=== PATIENT | male | born 1955 | race Caucasian/White ===

== ENCOUNTER 2020-10-07 19:44 | Emergency (ER) | payer BC, OTHER ==
[~2020-10-07] VITALS: Ht 180.3 cm; Wt 70.3 kg
--- NOTE | 2020-10-07 20:05 | ED Hip Pain/Injury ---
General Chief Complaint: Hip/Pelvic Problems Stated Complaint: FELL,GROIN PAIN Source: patient History of Present Illness Date Seen by Provider: Oct 07, 2020 Time Seen by Provider: 19:46 Initial Comments 65 yo male presents with right hip/groin pain since fall [place]. He had tripped over his shoelaces and fell onto his right hip. He denies hitting his head or losing consciousness. He has no numbness or tingling. He is able to bear some weight on right leg but not enough to walk, only hop or hobble. He has pain 8/10 with standing but with laying on the bed he has no pain. He has not taken anything for pain. Allergies and Home Medications Allergies Coded Allergies: No Known Drug Allergies (Unverified , 10/07/20) Home Medications Hydrocodone/Acetaminophen 1 Each Tablet, 1 EACH PO Q6H PRN for PAIN-SEVERE (8- 10) Prescribed by: CHE ALFARO on 10/07/202149 Ibuprofen 800 Mg Tablet, 800 MG PO Q8H PRN for PAIN Prescribed by: CHE ALFARO on 10/07/202148 Patient Home Medication List Home Medication List Reviewed: Yes Review of Systems Constitutional: No chills, No fever EENTM: no symptoms reported Respiratory: no symptoms reported Cardiovascular: no symptoms reported Gastrointestinal: no symptoms reported Genitourinary: no symptoms reported Musculoskeletal: see HPI Skin: No change in color Psychiatric/Neurological: See HPI Past Jbnwoze-Rhjhct-Cdstkg Hx Past Med/Social Hx: Reviewed Nursing Past Med/Soc Hx Patient Social History Alcohol Use: Denies Use Smoking Status: Never a Smoker Recent Foreign Travel: No Contact w/Someone Who Travel: No Past Medical History Surgeries: Yes Respiratory: No Cardiac: No Neurological: No Genitourinary: No Gastrointestinal: No Musculoskeletal: No Endocrine: No HEENT: No Cancer: No Psychosocial: No Integumentary: No Physical Exam Vital Signs Vital Signs - First Documented 10/07/20 19:47 Temp 36.6 Pulse 74 Resp 16 B/P (MAP) 145/87 (106) Pulse Ox 97 O2 Delivery Room Air Capillary Refill : Height, Weight, BMI Height: '" Weight: lbs. oz. kg; BMI Method: General Appearance: No Apparent Distress, WD/WN HEENT: PERRL/EOMI Cardiovascular: Regular Rate, Rhythm, Normal Peripheral Pulses Extremity: Normal Capillary Refill, No Calf Tenderness, No Pedal Edema, Pelvis Stable, Other (tender to internal and external rotation of the right hip of internal groin) Neurologic/Psychiatric: Alert, Oriented x3, No Motor/Sensory Deficits Skin: Normal Color, Warm/Dry Progress/Results/Core Measures Results/Orders My Orders Orders - CHE ALFARO MD Pelvis With Right Hip 2-3 View (10/07/20 19:59) Ct Pelvis Wo (10/07/20 20:30) Rx-Hydrocodone/Apap 5-325 Mg (Rx-Vicodin (10/07/20 21:45) Medications Given in ED Current Medications Medications Dose Ordered Sig/Jose D Route Start Time Stop Time Status Last Admin Dose Admin Acetaminophen/ Hydrocodone Bitart 1 ea Q6H PRN PO 10/07/20 21:45 10/07/20 21:54 DC 10/07/20 21:47 1 EA Vital Signs/I&O 10/07/20 10/07/20 19:47 21:53 Temp 36.6 36.6 Pulse 74 76 Resp 16 18 B/P (MAP) 145/87 (106) 126/82 (106) Pulse Ox 97 99 O2 Delivery Room Air Room Air Progress Progress Note #1: Progress Note obtain xrays of pelvis and right hip. with no pain laying in bed pt refused pain medicine before imaging. Progress Note #2: Time: 20:24 Progress Note no acute definite fracture seen on plain films. add on CT to look in finer detail since still having severe pain with standing. Progress Note #3: Progress Note CT shows hairline fracture from superior pubic ramus extending into the acetabulum on right. Will treat with pain control, weight bearing as tolerated, follow up with clinic/orthopedics. Walker from here to assist with ambulation. Diagnostic Imaging Diagonstic Imaging: Xray Plain Films/CT/US/NM/MRI: pelvis, hip Comments [facility]. [place], [place] NAME: JONATHAN ALVARADO [facility] REC#: [id number] PT STATUS: REG ER : 1955 PHYSICIAN: CHE ALFARO MD ADMIT DATE: 10/07/20/ER FS Draft Date of Exam:10/07/20 PELVIS WITH RIGHT HIP 2-3 VIEW INDICATION: Fall. Right hip and groin pain. COMPARISON: None FINDINGS: Frontal radiographic view of the pelvis and two dedicated radiographic views of the right hip were obtained. There is lucency within the proximal right femur consistent with probable previous intramedullary christiano placement and subsequent removal. There is partially visualized chronic appearing deformity of the right femoral shaft likely on the basis of old healed fracture. No acute fracture of the right hip is seen. Femoral acetabular joint space is maintained. Osseous pelvis is intact. There is large amount of colonic air and stool. No unexpected radiopaque foreign bodies are seen. IMPRESSION: 1. No acute fracture or dislocation of the pelvis or right hip. 2. Probable prior fracture with previous surgery to the right femur as described above. 3. Large amount of colonic air and stool. Please correlate for constipation. Dictated on workstation # [id number] Dict: 10/07/202025 Trans: 10/07/202028 [facility] [id number] Interpreted by: KARMEN LU MD Electronically signed by: Diagonstic Imaging: CT Plain Films/CT/US/NM/MRI: pelvis Comments NAME: JONATHAN ALVARADO [facility] REC#: [id number] PT STATUS: REG ER : 1955 PHYSICIAN: CHE ALFARO MD ADMIT DATE: 10/07/20/ER FS Draft Date of Exam:10/07/20 CT PELVIS WO PROCEDURE: CT pelvis without contrast. TECHNIQUE: Multiple contiguous axial images were obtained through the pelvis without the use of intravenous contrast. Sagittal and coronal reformations were performed. Auto Exposure Controls were utilized during the CT exam to meet ALARA standards for radiation dose reduction. INDICATION: Fall. Right hip pain. Previous right femoral fracture. COMPARISON: Radiographs from earlier the same day. FINDINGS: There is very subtle irregular jagged lucency involving the lateral margins of the superior pubic ramus near its junction with the acetabulum. This is only well visualized on the sagittal reformats (image 143, series 302). Findings could be on the basis of acute nondisplaced hairline fracture. No other distinct acute fracture or dislocation of the pelvis or either hip is identified. Pubic symphysis is within normal limits. SI joints are symmetric. Bilateral femoroacetabular joint spaces are maintained as well. Prior postsurgical changes of the proximal right femur are again noted. There is no acute fracture of the included portions of the bilateral femurs. No unexpected radiopaque foreign body is seen. Note is made of moderate asymmetric osteoarthritic changes to the left hip. There is also collapse of the anterior superior femoral head cortex with increased subchondral sclerosis. The surrounding soft tissue structures are unremarkable. No focal fluid collection is seen. IMPRESSION: 1. Very subtle findings suggestive of hairline fracture of the right puboacetabular junction, as described above. This could be confirmed with MR imaging. 2. Redemonstration of postsurgical changes of the proximal right femur. No unexpected radiopaque foreign bodies. 3. 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 Correlation with MRI may be of benefit and could be performed on a nonemergent basis. Dictated on workstation # [id number] Dict: 10/07/202104 Trans: 10/07/202114 [facility] [id number] Interpreted by: KARMEN LU MD Electronically signed by: Departure Impression Primary Impression: Closed fracture of right superior pubic ramus Qualified Codes: S32.511A - Fracture of superior rim of right pubis, initial encounter for closed fracture Additional Impressions: Fall Qualified Codes: W19.XXXA - Unspecified fall, initial encounter Contusion of right hip, initial encounter Disposition: 01 HOME, SELF-CARE Condition: Stable Departure-Patient Inst. Decision time for Depature: 21:50 Referrals: MAINOR RUFF MD Patient Instructions: How to Use a Walker, Pelvic Fracture (DC) Add. Discharge Instructions: Use the walker for weight bearing as you tolerate it. Ibuprofen or Hydrocodone for pain. Check with clinic next week about your hairline fracture of the pubic ramus extending into your right acetabulum (cup of your hip joint) You could follow up with Orthopedics Dr. Ruff or his human resource assistant TATYANA Buitrago here in [place] by calling [phone] All discharge instructions reviewed with patient and/or family. Voiced understanding. Scripts Ibuprofen (Ibuprofen) 800 Mg Tablet 800 MG PO Q8H PRN for PAIN for 10 Days, #30 TAB 0 Refills Prov: CHE ALFARO MD 10/07/20 Hydrocodone/Acetaminophen (Hydrocodone-Acetamin 5-325 mg) 1 Each Tablet 1 EACH PO Q6H PRN for PAIN-SEVERE (8-10) for 5 Days, #20 TAB 0 Refills Prov: CHE ALFARO MD 10/07/20 CHE ALFARO MD Oct 07, 2020 20:05
--- NOTE | 2020-10-07 20:30 | Diagnostic Imaging Report ---
INDICATION: Fall. Right hip and groin pain. COMPARISON: None FINDINGS: Frontal radiographic view of the pelvis and two dedicated radiographic views of the right hip were obtained. There is lucency within the proximal right femur consistent with probable previous intramedullary christiano placement and subsequent removal. There is partially visualized chronic appearing deformity of the right femoral shaft likely on the basis of old healed fracture. No acute fracture of the right hip is seen. Femoral acetabular joint space is maintained. Osseous pelvis is intact. There is large amount of colonic air and stool. No unexpected radiopaque foreign bodies are seen. IMPRESSION: 1. No acute fracture or dislocation of the pelvis or right hip. 2. Probable prior fracture with previous surgery to the right femur as described above. 3. Large amount of colonic air and stool. Please correlate for constipation. Dictated by: Dictated on workstation # [id number]
--- NOTE | 2020-10-07 21:16 | Diagnostic Imaging Report ---
PROCEDURE: CT pelvis without contrast. TECHNIQUE: Multiple contiguous axial images were obtained through the pelvis without the use of intravenous contrast. Sagittal and coronal reformations were performed. Auto Exposure Controls were utilized during the CT exam to meet ALARA standards for radiation dose reduction. INDICATION: Fall. Right hip pain. Previous right femoral fracture. COMPARISON: Radiographs from earlier the same day. FINDINGS: There is very subtle irregular jagged lucency involving the lateral margins of the superior pubic ramus near its junction with the acetabulum. This is only well visualized on the sagittal reformats (image 143, series 302). Findings could be on the basis of acute nondisplaced hairline fracture. No other distinct acute fracture or dislocation of the pelvis or either hip is identified. Pubic symphysis is within normal limits. SI joints are symmetric. Bilateral femoroacetabular joint spaces are maintained as well. Prior postsurgical changes of the proximal right femur are again noted. There is no acute fracture of the included portions of the bilateral femurs. No unexpected radiopaque foreign body is seen. Note is made of moderate asymmetric osteoarthritic changes to the left hip. There is also collapse of the anterior superior femoral head cortex with increased subchondral sclerosis. The surrounding soft tissue structures are unremarkable. No focal fluid collection is seen. IMPRESSION: 1. Very subtle findings suggestive of hairline fracture of the right puboacetabular junction, as described above. This could be confirmed with MR imaging. 2. Redemonstration of postsurgical changes of the proximal right femur. No unexpected radiopaque foreign bodies. 3. 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 Correlation with MRI may be of benefit and could be performed on a nonemergent basis. Dictated by: Dictated on workstation # [id number]
[2020-10-07] MEDS ORDERED: RX-HYDROCODONE/APAP 5/325 MG #4 TAB PK PO PRN (21:45)
[2020-10-07] MEDS ORDERED: IBUP-1780 PO (21:49)
[2020-10-07] MEDS ORDERED: ACHD5005 PO (21:49)
[2020-10-07 21:53] VITALS: BP 126/82
== END 2020-10-07 21:53 | disposition home or self-care (01) ==
LOC: ER FS 19:45
DX: S32.511A Fracture of superior rim of right pubis, initial encounter for closed fracture (principal); S70.01XA Contusion of right hip, initial encounter; W01.0XXA Fall on same level from slipping, tripping and stumbling without subsequent striking against object, initial encounter
CPT/HCPCS: 72192; 73502

== ENCOUNTER → 2020-11-09 | Outpatient (CLI) | payer BC ==
[~2020-11-09] MED LIST: ACHD5005 PO; IBUP-1780 PO
--- NOTE | 2020-11-09 16:05 | Diagnostic Imaging Report ---
INDICATION: Follow-up pelvic fracture. COMPARISON: CT dated 10/07/2020. FINDINGS: A single AP view of the pelvis was performed. No acute fracture or dislocation is apparent on this exam. Pubic symphysis is within normal limits. SI joints are symmetric. Proximal femurs are intact, bilaterally. The femoro-acetabular joint spaces appear maintained on this single frontal view. No unexpected radiopaque foreign bodies are seen. Included small bowel loops are nondistended. IMPRESSION: 1. No acute fracture or dislocation of the pelvis or bilateral hips is evident on today's exam. Dictated by: Dictated on workstation # [id number]
== END ==
LOC: RAD FS 13:33
PROVIDERS: ATTEND Nurse Practitioner
DX: S32.491D Other specified fracture of right acetabulum, subsequent encounter for fracture with routine healing (principal)
CPT/HCPCS: 72170

== ENCOUNTER 2022-06-28 09:51 | Emergency (ER) | payer BC ==
[~2022-06-28] VITALS: Ht 180 cm; Wt 70.0 kg
[2022-06-28 10:38] LABS: BASOPHILS % (AUTO) 0 % (0-10); EOSINOPHILS # (AUTO) 0.2 10^3/uL (0.0-0.3); EOSINOPHILS % (AUTO) 3 % (0-10); HEMATOCRIT 44 % (40-54); HEMOGLOBIN 15.2 g/dL (13.3-17.7); LYMPHOCYTES # (AUTO) 1.3 10^3/uL (1.0-4.0); LYMPHOCYTES % (AUTO) 21 % (12-44); MEAN CORPUSCULAR HEMOGLOBIN 34 pg (25-34); MEAN CORPUSCULAR HGB CONC 34 g/dL (32-36); MEAN CORPUSCULAR VOLUME 99 fL (80-99); MEAN PLATELET VOLUME 11.4 fL (9.0-12.2); MONOCYTES # (AUTO) 0.5 10^3/uL (0.0-1.0); MONOCYTES % (AUTO) 8 % (0-12); NEUTROPHILS # (AUTO) 4.1 10^3/uL (1.8-7.8); NEUTROPHILS % (AUTO) 68 % (42-75); PLATELET COUNT 181 10^3/uL (130-400)
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
[2022-06-28 10:43] LABS: BILIRUBIN,URINE NEGATIVE (NEGATIVE); CLARITY,URINE SL CLOUDY; COLOR,URINE YELLOW; GLUCOSE, URINE (UA) NEGATIVE (NEGATIVE); KETONES,URINE TRACE (NEGATIVE); LEUKOCYTE ESTERASE ,URINE NEGATIVE (NEGATIVE); NITRITE,URINE NEGATIVE (NEGATIVE); PH,URINE 5.5 (5-9); PROTEIN,URINE NEGATIVE (NEGATIVE)
[2022-06-28 10:56] LABS: ALBUMIN 4.1 GM/DL (3.2-4.5); BILIRUBIN,TOTAL 0.5 MG/DL (0.1-1.0); CALCIUM 9.4 MG/DL (8.5-10.1); CREATININE SERUM 1.05 MG/DL (0.60-1.30); POTASSIUM 4.2 MMOL/L (3.6-5.0); TOTAL PROTEIN 7.8 GM/DL (6.4-8.2)
[2022-06-28 10:57] LABS: BACTERIA,URINE NEGATIVE /HPF; CALCIUM OXALATE CRYSTALS,UR FEW /LPF; WBC,URINE RARE /HPF
--- NOTE | 2022-06-28 10:57 | Diagnostic Imaging Report ---
Patient History: Shortness of breath. Abdominal distention. Technique: 3 views of the chest, abdomen and pelvis were obtained. Comparison: None. FINDINGS: The lung volumes are normal. No focal consolidation is seen. Coarse interstitial markings are seen in the lungs, greatest in the lung bases. No large pleural effusion or pneumothorax is seen. The cardiomediastinal silhouette is normal in size and contour. No acute osseous abnormality is seen. Distended loops of colon are seen throughout the abdomen and pelvis. Fluid-filled nondilated loops of small bowel are seen. No evidence of free intraperitoneal air. No acute osseous abnormalities. IMPRESSION: 1. Distended loops of colon with nondilated fluid-filled loops of small bowel. Findings may represent enteritis/colitis. Bowel obstruction is felt to be less likely given the appearance of the colon. Recommend continued followup as indicated. 2. Fibrotic changes in the lungs. No focal consolidation or mass. No pleural effusion. Dictated by: Dictated on workstation # [id number]
[2022-06-28] MEDS ORDERED: HOLD METFORMIN - RECEIVED CONTRAST 20 ML VIAL IV SCH (11:15)
[2022-06-28] MEDS ORDERED: IOHEXOL 350 MG/ML 100 ML (OMNIPAQUE 350) VIAL IV ONE (11:15)
[2022-06-28] MEDS ORDERED: NS 100 ML (IVPB) BAG IV ONE (11:15)
--- NOTE | 2022-06-28 12:01 | Diagnostic Imaging Report ---
PROCEDURE: CT abdomen and pelvis with contrast. TECHNIQUE: Multiple contiguous axial images were obtained through the abdomen and pelvis after administration of intravenous contrast. Auto Exposure Controls were utilized during the CT exam to meet ALARA standards for radiation dose reduction. All CT scans use one or more of the following dose optimizing techniques: automated exposure control, MA and/or KvP adjustment based on patient size and exam type or iterative reconstruction. INDICATION: Partial small bowel obstruction Coarse interstitial markings are seen in the periphery of the lungs in the basilar regions may be due to fibrosis. Superimposed edema or pneumonitis is not fully excluded. Note is made of old right rib fracture deformities. Below the diaphragm, no focal hepatic, gallbladder, pancreatic, adrenal gland or splenic lesion is identified. Kidneys are also unremarkable with an approximately 1 cm cyst in lower pole right kidney. There is moderate amount of fluid within the distended right colon. There is also fluid distention of distal small bowel. There is gas and fluid present throughout the entirety of the colon which reaches the level of the rectum. Unopacified bladder is unremarkable in appearance. IMPRESSION: Nonspecific distention of colon with gas, fluid and stool. The greatest dilatation is in the ascending colon. There is mild fluid distention of distal small bowel however no definite transition point is seen to indicate site of obstruction. Presumed fibrotic findings are present in the lung bases although superimposed edema or pneumonitis is not excluded. Dictated by: Dictated on workstation # [id number]
[2022-06-28] MEDS ORDERED: FLEET ENEMA ADULT 1 EA BTL PR ONE (12:45)
[2022-06-28 13:14] VITALS: BP 171/96
== END 2022-06-28 13:21 | disposition home or self-care (01) ==
LOC: EDUNIT# 09:51 → ER FS 09:52
DX: R10.9 Unspecified abdominal pain (principal)
CPT/HCPCS: 36415; 74022; 74177; 80053; 81000; 85025; Q9967